=== PATIENT | female | born 1970 | race Caucasian/White ===

== ENCOUNTER 2018-12-26 21:23 | Emergency (ER) | payer MEDICAID ==
[~2018-12-26] VITALS: Ht 167.6 cm; Wt 68.0 kg
[2018-12-26 21:27] VITALS: BP 132/84; Ht 167.6 cm; Wt 68.0 kg
== END 2018-12-26 22:10 | disposition home or self-care (01) ==
LOC: ED 21:23
DX: S00.412A Abrasion of left ear, initial encounter (principal); H92.02 Otalgia, left ear; M79.7 Fibromyalgia; Z88.5 Allergy status to narcotic agent; X58.XXXA Exposure to other specified factors, initial encounter; Y93.89 Activity, other specified; Y92.89 Other specified places as the place of occurrence of the external cause; Y99.8 Other external cause status